=== PATIENT | male | born 2000 | race Caucasian/White ===

== ENCOUNTER 2022-11-01 16:30 | Outpatient (RCR) | payer OTHER, SELFPAY ==
--- NOTE | 2022-09-19 10:36 | HP.PTEVAL_ITS ---
Patient's Visit Information DAVIE OLIVAS is a 21 year old M referred to Physical Therapy by CLAUDIA RODRIGUEZ with a diagnosis of L knee patellar tendon repair 04/04/22. Date of Evaluation: 09/19/22 Physical Therapist: Manuel Sandoval, PT, ATC - Visit Plan Frequency: 3x /Week Duration: 4-6 Weeks Plan: Begin with bike, balance and proprio, core and L LE strengthening. Gradually incorporate jogging, ladder drills, and plyometrics as tolerated. - Subjective DOS: 04/04/22. Pt reports he tore his infrapatellar tendon at that time and had to have surgery to repair it. Pt notes there was no one single event that occurred when he tore his tendon. Pt reports the pain became increasing worse over a span of weeks so he went to his doctor. 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 Pt denies any PMHx of L knee pain. Pt reports after his surgery, he went to [facility] to recover and had virtual therapy. Pt notes this is his first in-person therapy. Pt reports L knee pain is 0/10 at rest, but 2/10 while walking secondary to working out yesterday. Pt denies tingling or numbness in L LE at this time. Pt denies sleep difficulty at this time secondary to pain. Pt reports no stairs at home, although he has negotiated stairs recently without difficulty. - Pain L knee pain Pain Intensity (Out of 10): 0 Pain Intensity Range: 2 - Objective Neuro: B LE sensation is WNL to light touch. B achilles reflex= 2/3. Girth at joint line: B knees are 33 cm. ROM: B knees are 0-140 degrees. MMT: R knee flex= 38, ext= 63 #F; L knee flex= 36, ext= 65 #F - Balance/Special Test Scores Lower Extremity Functional Score: 58 - Goals Goal 1:: Pt will be able to jog for 10 minutes to aid with return to sport Goal Time Frame: 4-6 Weeks Goal 2:: Pt will perform sport specific skills without limitation or pain Goal Time Frame: 4-6 Weeks Goal 3:: I with HEP Goal Time Frame: 4-6 Weeks - Rehabilitation Potential Physical Therapy Diagnosis: Pt has L knee pain and is unable to run at this time secondary to being s/p L knee AKS Rehabilitation Potential: Good - Anticipated Interventions Patient/Client Instruction: Educate patient on: Condition, Plan of Care For the Purpose of:: To improve self management Therapeutic Exercise to Include: Strength training, Endurance training, Balance training, Flexibilty training, Dynamic Lumbar Stabilization For the Purpose of:: To decrease pain, To improve muscle performance and motor function, To increase tolerance to activity/condition/position, To prevent re-injury Functional Training to Include: Functional sports training For the Purpose of:: To improve muscle performance and motor function, To prevent re-injury Cryotherapy (ice pack, ice massage): Yes For the Purpose of:: To decrease pain Thank you for the opportunity to evaluate your patient. For Medicare and Medicare HMO plans, please review the plan of care and approve it. It will need to be FAXED BACK to us at [phone] for Medicare purposes. For Medicare only, by signing this I certify the plan of care. Please let me know if there are questions or concerns regarding this plan of care. Physician Signature: Date:
--- NOTE | 2022-12-28 12:58 | HP.PT.NRP ---
Patient Information Patient Information: DAVIE OLIVAS was seen in my office for initial evaluation on 09/19/22. The following Plan of Care was established for this patient: POC Established Initial Frequency: 3x /Week Initial Duration: 4-6 Weeks Anticipated Interventions Patient/Client Instruction: Educate patient on: Condition and Plan of Care For the Purpose of:: To improve self management Therapeutic Exercise to Include: Strength training, Endurance training, Balance training, Flexibilty training and Dynamic Lumbar Stabilization For the Purpose of:: To decrease pain, To improve muscle performance and motor function, To increase tolerance to activity/condition/position and To prevent re-injury Functional Training to Include: Functional sports training For the Purpose of:: To improve muscle performance and motor function and To prevent re-injury Cryotherapy (ice pack, ice massage): Yes For the Purpose of:: To decrease pain Last Seen Last Seen: This patient was last seen in our office . Pertinent comments regarding their Physical therapy will appear below: Pt was treated for 13 PT visits for L knee pain through the date of 11/01/22. Pt has not returned through todays date and is discontinued at this time. At this point I will be discontinuing this patient from physical therapy. I would be happy to see this patient again in the future if found appropriate by the physician. Thank you! Manuel Sandoval, PT, ATC Balance/Gait/Functional tests Balance/Special Test Scores Lower Extremity Functional Score: 77
== END 2022-11-01 19:00 | disposition home or self-care (01) ==
LOC: PT 16:30
DX: M76.52 Patellar tendinitis, left knee (principal)
CPT/HCPCS: 97110; 97161